=== PATIENT | female | born 1950 | race Caucasian/White ===

== ENCOUNTER → 2018-02-02 | Outpatient (REF) | payer MEDICARE, BC | LOC: M LAB REF 13:08 | DX: N39.0 Urinary tract infection, site not specified (principal) | CPT/HCPCS: 87186 ==

== ENCOUNTER → 2018-05-30 | Outpatient (REF) | payer MEDICARE, BC ==
[2018-06-01 14:28] LABS: Lyme Disease IgG Ab 18 kDa Ban Present (.); Lyme Disease IgG Ab 23 kDa Ban Absent (.); Lyme Disease IgG Ab 28 kDa Ban Absent (.); Lyme Disease IgG Ab 30 kDa Ban Absent (.); Lyme Disease IgG Ab 39 kDa Ban Present (.); Lyme Disease IgG Ab 41 kDa Ban Present (.); Lyme Disease IgG Ab 45 kDa Ban Absent (.); Lyme Disease IgG Ab 58 kDa Ban Present (.); Lyme Disease IgG Ab 66 kDa Ban Absent (.); Lyme Disease IgG Ab 93 kDa Ban Present (.); Lyme Disease IgG West Blot Int Positive (.); Lyme Disease IgG/IgM Antibodie 1.99 ISR (0.00-0.90); Lyme Disease IgM Ab 23 kDa Ban Present (.); Lyme Disease IgM Ab 39 kDa Ban Absent (.); Lyme Disease IgM Ab 41 kDa Ban Absent (.); Lyme Disease IgM Ab Quantitati 0.85 index (0.00-0.79); Lyme Disease IgM West Blot Int Negative (.)
== END ==
LOC: M LAB REF 12:23
DX: S40.861A Insect bite (nonvenomous) of right upper arm, initial encounter (principal); X58.XXXA Exposure to other specified factors, initial encounter; Y92.9 Unspecified place or not applicable; Y93.9 Activity, unspecified
CPT/HCPCS: 86617

== ENCOUNTER → 2019-01-15 | Outpatient (REF) | payer MEDICARE, BC ==
[2019-01-15 13:19] LABS: COMPLEMENT C3 118 MG/DL (90-180); COMPLEMENT C4 26 MG/DL (10-40); RHEUMATOID FACTOR QUANT < 10.0 IU/ML (<15.0); TOTAL PROTEIN 7.2 GM/DL (6.4-8.2)
[2019-01-17 11:11] LABS: ALBUMIN 4.51 GM/DL (3.29-5.55); ALBUMIN % 62.7 % (55.8-66.1); ALPHA-1-GLOBULIN % 3.5 % (2.9-4.9); ALPHA-1-GLOBULINS 0.25 GM/DL (0.17-0.41); ALPHA-2-GLOBULINS 0.68 GM/DL (0.42-0.99); ALPHA-2-GLOBULINS % 9.5 % (7.1-11.8); BETA-1-GLOBULINS 0.44 GM/DL (0.28-0.60); BETA-1-GLOBULINS % 6.1 % (4.7-7.2); BETA-2-GLOBULINS 0.37 GM/DL (0.19-0.55); BETA-2-GLOBULINS % 5.2 % (3.2-6.5); GAMMA GLOBULINS 0.94 GM/DL (0.65-1.58)
[2019-01-17 14:20] LABS: ANTINUCLEAR ANTIBODIES DIRECT Negative (Negative); Lyme Disease IgG Ab 18 kDa Ban Present (.); Lyme Disease IgG Ab 23 kDa Ban Absent (.); Lyme Disease IgG Ab 28 kDa Ban Absent (.); Lyme Disease IgG Ab 30 kDa Ban Absent (.); Lyme Disease IgG Ab 39 kDa Ban Present (.); Lyme Disease IgG Ab 41 kDa Ban Present (.); Lyme Disease IgG Ab 45 kDa Ban Absent (.); Lyme Disease IgG Ab 58 kDa Ban Absent (.); Lyme Disease IgG Ab 66 kDa Ban Absent (.); Lyme Disease IgG Ab 93 kDa Ban Absent (.); Lyme Disease IgG West Blot Int Negative (.); Lyme Disease IgG/IgM Antibodie 1.62 ISR (0.00-0.90); Lyme Disease IgM Ab 23 kDa Ban Present (.); Lyme Disease IgM Ab 39 kDa Ban Absent (.); Lyme Disease IgM Ab 41 kDa Ban Absent (.); Lyme Disease IgM Ab Quantitati <0.80 index (0.00-0.79); Lyme Disease IgM West Blot Int Negative (.)
[2019-01-18 09:39] LABS: THYROGLOBULIN ANTIBODY 15.7 U/ML (<60.0); THYROID PEROXIDASE ANTIBODY 39.7 U/ML (<60.0)
== END ==
LOC: M LAB REF 12:19
PROVIDERS: ATTEND Nurse Practitioner Adult Health
DX: L29.8 Other pruritus (principal); R21 Rash and other nonspecific skin eruption

== ENCOUNTER → 2019-12-25 | Outpatient (REF) | payer MEDICARE, BC | LOC: M LAB REF 16:10 | PROVIDERS: ATTEND Nurse Practitioner Adult Health | DX: R20.0 Anesthesia of skin (principal) ==

== ENCOUNTER → 2020-05-07 | Outpatient (CLI) | payer MEDICARE, BC ==
--- NOTE | 2020-05-13 07:05 | SLEEPCENT ---
DATE: 05/07/2020 ORDERED BY: Dr. Keanu Dela Cruz Nocturnal polysomnography was performed for the retitration of pressure therapy in this patient with a history of obstructive sleep apnea syndrome. For testing, a ResMed AirFit F30 full-face mask of small size was used. There was 8 cm of water pressure initially applied to the circuit, and the lights were extinguished. There was 5 hours and 51 minutes of data reviewed. There was 381 minutes of sleep identified. Sleep latency was normal at 35.5 minutes. REM latency was delayed at 217.5 minutes. Sleep architecture improved late in the study. There were three REM cycles noted. Overall sleep efficiency was 82.4%. The electrocardiogram showed a sinus rhythm with an average heart rate of 58 beats per minute. EEG showed reasonable normal waveforms for wake and sleep. Respiratory events were reasonably well palliated with CPAP at a pressure of +14. Some limb activity was noted, particularly in the early to mid portions of the study. Limb movement arousal index on this occasion was 4.3. IMPRESSION: Obstructive sleep apnea syndrome (G47.33). RECOMMENDATION: Nightly use of pressure therapy, 14 cm of water. MTDD
== END ==
LOC: M SLEEP 20:00
PROVIDERS: ATTEND Internal Medicine Pulmonary Disease
DX: G47.33 Obstructive sleep apnea (adult) (pediatric) (principal)

== ENCOUNTER → 2020-05-12 | Outpatient (CLI) | payer MEDICARE, BC ==
--- NOTE | 2020-05-15 08:57 | REP ---
LIMITED ABDOMINAL ULTRASOUND: 05/12/20. CLINICAL: Generalized abdominal pain, right upper quadrant pain. TECHNIQUE: Real time hong scale ultrasound examination using curved array transducer. FINDINGS: The liver includes two relatively simple benign appearing cysts in the right lobe measuring 14mm and 12mm each. Visualized portions of the pancreas are unremarkable but limited due to interposed bowel gas. The gallbladder demonstrates a few small mobile gallstones without wall thickening or pericholecystic fluid. No biliary ductal dilatation is appreciated and the common bile duct measures 2.2mm diameter. The right kidney is normal in reniform shape without hydronephrosis and measures 9.5 x 4.2 x 4.6cm. No ascites in the visualized right upper quadrant. IMPRESSION: 1. Cholelithiasis without evidence for acute cholecystitis. 2. Two small benign appearing hepatic cysts. MTDD
== END ==
LOC: M RAD 08:22
PROVIDERS: ATTEND Internal Medicine Gastroenterology
DX: K80.20 Calculus of gallbladder without cholecystitis without obstruction (principal); K76.89 Other specified diseases of liver; K75.81 Nonalcoholic steatohepatitis (NASH); K82.9 Disease of gallbladder, unspecified; R10.9 Unspecified abdominal pain

== ENCOUNTER → 2020-05-12 | Outpatient (REF) | payer MEDICARE, BC | LOC: M LAB REF 16:20 | PROVIDERS: ATTEND Nurse Practitioner Adult Health | DX: R10.9 Unspecified abdominal pain (principal) ==

== ENCOUNTER → 2021-01-29 | Outpatient (CLI) | payer MEDICARE, BC ==
[2021-01-29 13:31] LABS: C REACTIVE PROTEIN QUANTITATIV < 0.30 MG/DL (0.00-0.30); RHEUMATOID FACTOR QUANT < 10.0 IU/ML (<15.0); URIC ACID 4.8 MG/DL (2.6-6.0)
[2021-01-30 11:08] LABS: ANTINUCLEAR ANTIBODIES DIRECT Negative (Negative)
== END ==
LOC: M PLALAB 12:08
PROVIDERS: ATTEND Orthopaedic Surgery
DX: G56.03 Carpal tunnel syndrome, bilateral upper limbs (principal)

== ENCOUNTER → 2021-07-06 | Outpatient (CLI) | payer MEDICARE, BC ==
--- NOTE | 2021-07-06 10:05 | REPMRS ---
Patient History The patient states she has not had a clinical breast exam in over a year. Patient is postmenopausal. No known family history of cancer. Patient states no breast complaints today. Patient has signed MRS History Sheet. Digital Woman Screen Mammo: July 06, 2021 - Exam #: [id number] Bilateral CC and MLO view(s) were taken. Technologist: Tri Powell, Technologist Prior study comparison: June 23, 2020, right breast digital mammo diagnostic unilateral, performed at [facility]. June 05, 2020, bilateral digital mammo screening bilat, performed at [facility]. FINDINGS: There are scattered fibroglandular densities. Screening. Digital screening (2D) mammography was performed bilaterally in the CC and MLO projections. Additionally, breast tomosynthesis (3D mammography) was performed bilaterally in the CC and MLO projections. Todays exam was compared to the prior exam/exams. By history, the patient has no complaints of a palpable breast abnormality or other significant breast complaints. The Volpara volumetric breast density category is B, there are scattered areas of fibroglandular densities. The breasts are unchanged in size and shape. There are stable focal asymmetries in both breasts. There are no patricia-soft tissue densities or spiculated masses. There is no internal architectural distortion. Once again, stable benign appearing calcifications are seen. There are no suspicious patricia-calcific clusters. Skin thickening or nipple retraction is not present. IMPRESSION: BI-RADS Category 2- Benign Findings. There is no evidence of malignant alteration of the breasts. Followup examination recommended in one year. This mammogram was read with the assistance of [facility],an FDA approved computer aided detection system for mammography. The lifetime Tyrer-Cuzick score is 3.3% Negative x-ray reports should not delay surgical consultation if a dominant or clinically suspicious mass is present. Not all breast cancers can be identified by mammography. Therefore, we recommend that you continue to perform regular breast self-examination and physical examination and then promptly contact your physician of any concerns or changes. Adenosis and dense breasts may obscure an underlying neoplasm. No significant changes when compared with prior studies. Assessment: BI-RADS/ACR category 2 mammogram. Benign Findings. Recommendation Routine screening mammogram of both breasts in 1 year. Electronically Signed By: Evangelista Barger MD 07/06/21 [id number]
== END ==
LOC: M WHC 08:05
PROVIDERS: ATTEND Nurse Practitioner Adult Health
DX: Z12.31 Encounter for screening mammogram for malignant neoplasm of breast (principal)

== ENCOUNTER → 2021-07-13 | Outpatient (CLI) | payer MEDICARE, BC | LOC: M RAD 10:00 | PROVIDERS: ATTEND Internal Medicine Gastroenterology | DX: K21.00 Gastro-esophageal reflux disease with esophagitis, without bleeding (principal); K76.0 Fatty (change of) liver, not elsewhere classified; N28.1 Cyst of kidney, acquired; K80.20 Calculus of gallbladder without cholecystitis without obstruction ==

== ENCOUNTER → 2021-12-09 | Outpatient (REF) | payer MEDICARE, BC ==
[2021-12-09 16:52] LABS: ALBUMIN 4.1 GM/DL (3.2-5.2); BILIRUBIN,DIRECT 0.2 MG/DL (0.0-0.2); BILIRUBIN,TOTAL 0.6 MG/DL (0.2-1.0); TOTAL PROTEIN 7.1 GM/DL (6.4-8.2)
== END ==
LOC: M LABDRAWC 15:40
PROVIDERS: ATTEND Internal Medicine Gastroenterology
DX: K76.0 Fatty (change of) liver, not elsewhere classified (principal); K76.89 Other specified diseases of liver

== ENCOUNTER → 2022-04-05 | Outpatient (REF) | payer MEDICARE, BC | LOC: M LAB REF 16:17 | PROVIDERS: ATTEND Nurse Practitioner Adult Health | DX: M54.50 Low back pain, unspecified (principal) ==

== ENCOUNTER → 2022-04-14 | Outpatient (CLI) | payer MEDICARE, BC | LOC: M RAD 06:57 | PROVIDERS: ATTEND Nurse Practitioner Adult Health | DX: M54.16 Radiculopathy, lumbar region (principal) ==

== ENCOUNTER → 2022-06-29 | Outpatient (CLI) | payer MEDICARE, BC ==
[2022-06-29 12:01] LABS: BILIRUBIN,DIRECT 0.2 MG/DL (<0.4); BILIRUBIN,TOTAL 0.6 MG/DL (0.3-1.2); TOTAL PROTEIN 6.7 G/DL (5.7-8.2)
== END ==
LOC: M RAD 09:02
PROVIDERS: ATTEND Nurse Practitioner Family
DX: K21.00 Gastro-esophageal reflux disease with esophagitis, without bleeding (principal); K76.89 Other specified diseases of liver; K76.0 Fatty (change of) liver, not elsewhere classified; K80.20 Calculus of gallbladder without cholecystitis without obstruction

== ENCOUNTER → 2022-06-29 | Outpatient (CLI) | payer MEDICARE, BC ==
[2022-06-29 11:57] LABS: CALCIUM LEVEL 9.2 MG/DL (8.3-10.6); CREATININE FOR GFR 0.99 MG/DL (0.55-1.30); GLOMERULAR FILTRATION RATE 58.5 (>39); POTASSIUM SERUM 4.5 MMOL/L (3.5-5.1)
== END ==
LOC: M LAB 09:55
PROVIDERS: ATTEND Nurse Practitioner Adult Health
DX: I12.9 Hypertensive chronic kidney disease with stage 1 through stage 4 chronic kidney disease, or unspecified chronic kidney disease (principal); N18.9 Chronic kidney disease, unspecified

== ENCOUNTER → 2022-07-12 | Outpatient (CLI) | payer MEDICARE, BC | LOC: M WHC 16:16 | PROVIDERS: ATTEND Nurse Practitioner Adult Health | DX: R92.2 Inconclusive mammogram (principal) ==

== ENCOUNTER → 2022-07-19 | Outpatient (CLI) | payer MEDICARE, BC | LOC: M WHC 13:00 | PROVIDERS: ATTEND Nurse Practitioner Adult Health | DX: R92.8 Other abnormal and inconclusive findings on diagnostic imaging of breast (principal); N63.23 Unspecified lump in the left breast, lower outer quadrant | CPT/HCPCS: 77065; G0279 ==

== ENCOUNTER 2023-02-07 11:46 | Day surgery (SDC) | payer MEDICARE, BC ==
[~2023-02-07] VITALS: Ht 160 cm; Wt 62.9 kg
[~2023-02-07 11:46] MED LIST: CALC500T68 PO; CYAN500T14 SL; LEXA1TAB2 PO; METF500T13 PO; NS 1,000 ML IV ONE; PEPC40TA12 PO; ROSU20TA61 PO; VITA100093 PO; WELLTAB40 PO; [UNRECOGNIZED DRUG - CODE] SL
[2023-02-07] MEDS ORDERED: GLYCOPYRROLATE INJ 0.2 MG/ML 2 ML VIAL As Ordered ONE (13:29)
[2023-02-07] MEDS ORDERED: propofoL 200 MG/20 ML VIAL As Ordered ONE (13:29)
[2023-02-07] MEDS ORDERED: LIDOCAINE 2% 100MG/5ML SDV (FOR ANES.) As Ordered ONE (13:29)
[2023-02-07 13:42] VITALS: TEMP 97.4
[2023-02-07 14:03] VITALS: BP 158/98; O2SAT 98
== END 2023-02-07 14:15 | disposition home or self-care (01) ==
LOC: M OPP 11:46
PROVIDERS: ATTEND Internal Medicine Gastroenterology
DX: K29.70 Gastritis, unspecified, without bleeding (principal); Q39.6 Congenital diverticulum of esophagus; K22.89 Other specified disease of esophagus; G47.33 Obstructive sleep apnea (adult) (pediatric); Z99.89 Dependence on other enabling machines and devices; Z79.02 Long term (current) use of antithrombotics/antiplatelets; Z79.82 Long term (current) use of aspirin; Z79.84 Long term (current) use of oral hypoglycemic drugs; Z79.899 Other long term (current) drug therapy; Z88.5 Allergy status to narcotic agent

== ENCOUNTER → 2023-03-23 | Outpatient (REF) | payer MEDICARE, BC ==
[~2023-03-23] MED LIST changes: -NS 1,000 ML IV ONE
[2023-03-23 15:55] LABS: BLOOD UREA NITROGEN 13 MG/DL (9-23); CREATININE FOR GFR 0.92 MG/DL (0.55-1.30); GLOMERULAR FILTRATION RATE > 60.0 (>39)
== END ==
LOC: M LABDRWAD 15:01
PROVIDERS: ATTEND Internal Medicine Gastroenterology
DX: K44.9 Diaphragmatic hernia without obstruction or gangrene (principal)

== ENCOUNTER → 2023-03-30 | Outpatient (CLI) | payer MEDICARE, BC ==
[~2023-03-30] MED LIST changes: +ISOVUE-370 76% 100ML VIAL As Ordered ONE
== END ==
LOC: M RAD 07:33
PROVIDERS: ATTEND Internal Medicine Gastroenterology
DX: K44.9 Diaphragmatic hernia without obstruction or gangrene (principal)
CPT/HCPCS: 71260; Q9967

== ENCOUNTER → 2023-07-21 | Outpatient (CLI) | payer MEDICARE, BC ==
[~2023-07-21] MED LIST changes: -ISOVUE-370 76% 100ML VIAL As Ordered ONE
== END ==
LOC: M WHC 14:15
PROVIDERS: ATTEND Internal Medicine
DX: Z12.31 Encounter for screening mammogram for malignant neoplasm of breast (principal)

== ENCOUNTER → 2023-11-15 | Outpatient (CLI) | payer MEDICARE | LOC: M WHC 13:06 | PROVIDERS: ATTEND Internal Medicine | DX: M81.0 Age-related osteoporosis without current pathological fracture (principal) ==

== ENCOUNTER → 2024-08-02 | Outpatient (CLI) | payer MEDICARE, BC ==
[~2024-08-02] MED LIST changes: -ROSU20TA61 PO; +ROSU20TA86 PO
== END ==
LOC: M WHC 11:10
PROVIDERS: ATTEND Internal Medicine
DX: Z12.31 Encounter for screening mammogram for malignant neoplasm of breast (principal)

== ENCOUNTER → 2024-08-15 | Outpatient (CLI) | payer MEDICARE, BC | LOC: M RAD 08:55 | PROVIDERS: ATTEND Orthopaedic Surgery | DX: M47.896 Other spondylosis, lumbar region (principal); M51.26 Other intervertebral disc displacement, lumbar region ==

== ENCOUNTER 2024-11-01 06:50 | Day surgery (SDC) | payer MEDICARE, BC ==
[~2024-11-01] VITALS: Ht 160 cm; Wt 65.9 kg
[~2024-11-01 06:50] MED LIST changes: +ARIP1TAB4 PO; +BUPR-597 PO; +CITA20TA7 PO; +DIAZ5TAB PO; +ESTR10TA VG; +FINA1TAB4 PO; +METF750T36 PO; +SPIR-10 PO; +URSO1TAB7 PO
[2024-11-01] MEDS ORDERED: LIDOCAINE 2% 100MG/5ML SDV (FOR ANES.) As Ordered ONE (07:48)
[2024-11-01] MEDS ORDERED: propofoL 200 MG/20 ML VIAL As Ordered ONE (07:48)
[2024-11-01 08:03] VITALS: TEMP 97.5
[2024-11-01 08:20] VITALS: BP 143/67; O2SAT 98
== END 2024-11-01 08:36 | disposition home or self-care (01) ==
LOC: M OPP 06:50
PROVIDERS: ATTEND Internal Medicine Gastroenterology
DX: D12.4 Benign neoplasm of descending colon (principal); D12.0 Benign neoplasm of cecum; K57.30 Diverticulosis of large intestine without perforation or abscess without bleeding; K64.8 Other hemorrhoids; Z86.0101 Personal history of adenomatous and serrated colon polyps; G47.30 Sleep apnea, unspecified; Z88.5 Allergy status to narcotic agent; Z79.84 Long term (current) use of oral hypoglycemic drugs; Z79.899 Other long term (current) drug therapy